=== PATIENT | female | born 1970 | race Caucasian/White ===

== ENCOUNTER 2022-06-17 20:53 | Inpatient (IN) | payer MEDICAID ==
[~2022-06-17] VITALS: Ht 160 cm; Wt 161.9 kg
[~2022-06-17 20:53] MED LIST: ATOR20TA65 PO; ERGO2000 PO; GABA-532 PO; GLIM2TAB30 PO; GLUC-113 PO; LISI10TA26 PO; METF-416 PO; OMEP20CA14 PO; SITA100T11 PO
[2022-06-17 23:41] LABS: BASOPHILS % 0.4 % (0.0-2.0); HEMATOCRIT. 38.4 % (36.0-48.0); HEMOGLOBIN. 12.5 g/dL (12.0-16.0); LYMPHOCYTES % 18.3 % (20.0-50.0); MEAN CORPUSCULAR HEMOGLOBIN 29.1 pg (28.0-32.0); MEAN CORPUSCULAR VOLUME 89.1 fL (81.0-99.0); MEAN PLATELET VOLUME 8.6 fl (7.4-10.4); MONOCYTES % 4.1 % (2.0-8.0); NEUTROPHILS % 76.2 % (40.0-76.0); PLATELET 400 x1000/uL (130-400); RED BLOOD CELL COUNT 4.31 mill/uL (4.2-5.4)
[2022-06-17 23:49] LABS: CHLORIDE 104 mEq/L (98-107)
[2022-06-18] MEDS ORDERED: SODIUM CHLORIDE 0.9% 1,000 ML IV ONE ×2 (00:30)
[2022-06-18] MEDS ORDERED: AZITHROMYCIN 500MG/250ML 250 ML IV NR (00:30)
[2022-06-18] MEDS ORDERED: CEFTRIAXONE 1 G PREMIX 50 ML IV NR (00:30)
[2022-06-18] MEDS ORDERED: ONDANSETRON HCL 4MG/2ML INJ IV STA (00:58)
[2022-06-18] MEDS ORDERED: MORPHINE SULFATE 4 MG/ML CPJ (NOT FOR IM USE) IV STA (00:58)
[2022-06-18] MEDS ORDERED: ACETAMINOPHEN 325MG TABLET PO PRN (07:15)
[2022-06-18] MEDS ORDERED: CLONIDINE 0.1MG TABLET PO PRN (07:15)
[2022-06-18] MEDS ORDERED: CEFTRIAXONE 1 G PREMIX 50 ML IV SCH (07:15)
[2022-06-18] MEDS ORDERED: DOCUSATE SODIUM 100MG CAPSULE PO PRN (07:15)
[2022-06-18] MEDS ORDERED: MAGNESIUM/ALUMINUM HYDROXIDE/SIMETHICONE 30ML UDC PO PRN (07:15)
[2022-06-18] MEDS ORDERED: ONDANSETRON HCL 4MG/2ML INJ IV PRN (07:15)
[2022-06-18] MEDS ORDERED: GUAIFENESIN 200MG/10ML SUGAR FREE UDC PO PRN (07:15)
[2022-06-18] MEDS ORDERED: NALOXONE HCL 0.4MG/ML VIAL IV PRN (07:30)
[2022-06-18] MEDS: SODIUM CHLORIDE 0.45% 1,000 ML IV SCH ×2 (10:09→21:04)
[2022-06-18] MEDS: ENOXAPARIN 40MG/0.4ML SYR SUBCUT SCH ×2 (10:10→17:19)
[2022-06-18] MEDS: TRAMADOL 50MG TABLET PO PRN ×2 (10:11→21:03)
[2022-06-18 10:37] VITALS: BP 141/86
[2022-06-18 11:58] VITALS: BP 149/75
[2022-06-18] MEDS ORDERED: INFLUENZA VACCINE 05/PF 0.5 ML SYRINGE IM ONE (12:00)
[2022-06-18] MEDS ORDERED: DEXTROSE 50% WATER 50ML SYRINGE IV PRN (15:15)
[2022-06-18 15:51] VITALS: BP 113/80
[2022-06-18] MEDS: BLOOD SUGAR DIAGNOSTIC STRIP TEST SCH ×2 (16:45→21:04)
[2022-06-18] MEDS: BACLOFEN 10MG TABLET PO SCH (17:16)
[2022-06-18 17:44] LABS: BASOPHILS % 0.5 % (0.0-2.0); EOSINOPHILS % 2.3 % (0.0-5.0); HEMATOCRIT. 38.3 % (36.0-48.0); HEMOGLOBIN. 12.3 g/dL (12.0-16.0); LYMPHOCYTES % 18.5 % (20.0-50.0); MEAN CORPUSCULAR HEMOGLOBIN 28.8 pg (28.0-32.0); MEAN CORPUSCULAR VOLUME 89.7 fL (81.0-99.0); MEAN PLATELET VOLUME 8.9 fl (7.4-10.4); MONOCYTES % 4.1 % (2.0-8.0); NEUTROPHILS % 74.6 % (40.0-76.0); PLATELET 358 x1000/uL (130-400); RED BLOOD CELL COUNT 4.26 mill/uL (4.2-5.4); RED CELL DISTRIBUTION WIDTH 14.2 % (11.6-14.6)
[2022-06-18] MEDS ORDERED: IPRATROPIUM BROMIDE (0.02%) 0.5MG/2.5ML NEB HHN SCH (18:00)
[2022-06-18] MEDS ORDERED: ALBUTEROL (0.083%) 2.5MG/3ML NEB HHN SCH ×2 (18:00)
[2022-06-18 20:00] VITALS: BP 138/80
[2022-06-18] MEDS ORDERED: CEFTRIAXONE 1,000 MG in DEXTROSE 5% WATER 50 ML IV SCH ×2 (21:00→22:00)
[2022-06-18] MEDS ORDERED: ATORVASTATIN CALCIUM 20MG TABLET PO SCH (21:00)
[2022-06-18] MEDS: INSULIN LISPRO 100 UNITS/ML SUBCUT SCH ×2 (21:08→21:21)
[2022-06-18 23:39] LABS: CLARITY URINE CLEAR (CLEAR); COLOR URINE YELLOW (YELLOW); KETONES URINE TRACE (NEGATIVE); LEUKOCYTE ESTERASE URINE NEGATIVE (NEGATIVE); NITRITE URINE NEGATIVE (NEGATIVE); OCCULT BLOOD URINE NEGATIVE (NEGATIVE); PH URINE 5.5 (4.5-8.0); PROTEIN URINE NEGATIVE (NEGATIVE); SPECIFIC GRAVITY URINE 1.025 (1.005-1.030); UROBILINOGEN URINE 0.2 E.U./dL (0.2-1.0)
[2022-06-19 00:33] VITALS: BP 144/78
[2022-06-19] MEDS ORDERED: AZITHROMYCIN 500 MG in DEXT 5% WATER 250 ML IV SCH ×4 (01:00)
[2022-06-19 04:00] VITALS: BP 156/85
[2022-06-19] MEDS: BLOOD SUGAR DIAGNOSTIC STRIP TEST SCH ×2 (06:42→12:57)
[2022-06-19] MEDS: ENOXAPARIN 40MG/0.4ML SYR SUBCUT SCH (06:43)
[2022-06-19 07:32] LABS: BASOPHILS % 0.3 % (0.0-2.0); EOSINOPHILS % 2.3 % (0.0-5.0); HEMATOCRIT. 35.4 % (36.0-48.0); HEMOGLOBIN. 11.6 g/dL (12.0-16.0); LYMPHOCYTES % 14.5 % (20.0-50.0); MEAN CORPUSCULAR HEMOGLOBIN 29.3 pg (28.0-32.0); MEAN CORPUSCULAR VOLUME 89.5 fL (81.0-99.0); MEAN PLATELET VOLUME 8.5 fl (7.4-10.4); MONOCYTES % 5.1 % (2.0-8.0); NEUTROPHILS % 77.8 % (40.0-76.0); PLATELET 368 x1000/uL (130-400); RED BLOOD CELL COUNT 3.96 mill/uL (4.2-5.4); RED CELL DISTRIBUTION WIDTH 14.1 % (11.6-14.6)
[2022-06-19 07:39] LABS: CHLORIDE 101 mEq/L (98-107)
[2022-06-19] MEDS ORDERED: PANTOPRAZOLE 40MG DR TABLET PO SCH (07:40)
[2022-06-19 07:55] LABS: LDL CHOLESTEROL 89 mg/dL (5-100); PHOSPHORUS 4.5 mg/dL (2.5-4.9)
[2022-06-19 07:57] LABS: HDL CHOLESTEROL 46 mg/dL (40-59)
[2022-06-19] MEDS: BACLOFEN 10MG TABLET PO SCH (09:12)
[2022-06-19] MEDS: TRAMADOL 50MG TABLET PO PRN (09:24)
[2022-06-19] MEDS: INSULIN LISPRO 100 UNITS/ML SUBCUT SCH ×2 (09:25→13:16)
[2022-06-19] MEDS ORDERED: SULF1TAB48 MT (10:48)
[2022-06-19 14:40] VITALS: BP 116/74
== END 2022-06-19 17:51 | disposition home or self-care (01) | DRG 720 ==
LOC: ER 20:53 → 7WST 06-18 01:32 → EDBEDREQTM 06-18 01:44 → EDBEDREQ 06-18 01:44
PROVIDERS: ADMIT Hospitalist; ATTEND Hospitalist
DX: A41.9 Sepsis, unspecified organism (principal); Z68.44 Body mass index [BMI] 60.0-69.9, adult; E11.9 Type 2 diabetes mellitus without complications; E66.01 Morbid (severe) obesity due to excess calories; J45.909 Unspecified asthma, uncomplicated; I10 Essential (primary) hypertension; K59.00 Constipation, unspecified; E78.5 Hyperlipidemia, unspecified; M54.9 Dorsalgia, unspecified; G89.29 Other chronic pain; M19.90 Unspecified osteoarthritis, unspecified site; Z79.899 Other long term (current) drug therapy; Z98.891 History of uterine scar from previous surgery; Z79.84 Long term (current) use of oral hypoglycemic drugs; Z87.891 Personal history of nicotine dependence
CPT/HCPCS: 36415; 71045; 74176; 76700; 80053; 80061; 81003; 82962; 83036; 83605; 83735; 84100; 84145; 85025; 90686; 93970; 94640; 97166; 99291; J0456; J0696; J1650; J1815; J2270; J2405; J7060